=== PATIENT | female | born 1990 | race Caucasian/White ===

== ENCOUNTER → 2016-06-27 | Outpatient (CLI) | payer BC ==
[~2016-06-27] MED LIST: AMOX-351 PO; NORG1TAB12
--- NOTE | 2016-06-27 16:51 | DI ---
Indication: ITS.REASON: R22.1 LOCALIZED SWELLING, MASS, AND LUMP, NECK PROCEDURE: US SOFT TISSUE NECK: Encounter: Initial Comparison: None Technique: Grayscale and color Doppler sonographic imaging of the neck was performed. Findings: In the right neck area of palpable abnormality there is an oval hypoechoic lesion measuring 1.9 x 0.7 x 1.1 cm in size that could represent a lymph node although I do not see a definite fatty hilum. In the left neck there is a small normal-appearing 2 to 3 mm short axis lymph node with a normal-appearing fatty hilum. Impression: Abnormality in the right neck that could represent an abnormal lymph node or mass. Recommend contrast enhanced neck CT for further evaluation. .
== END ==
LOC: IMA 10:21
PROVIDERS: ATTEND Family Medicine
DX: R93.8 Abnormal findings on diagnostic imaging of other specified body structures (principal)

== ENCOUNTER → 2016-07-04 | Outpatient (CLI) | payer BC ==
[~2016-07-04] MED LIST changes: +IOHEXOL 300 MG/ML 75ml INJECTION ONE; +NORMAL SALINE 100 ML ONE; +SALINE FLUSH 10ml SYRINGE ONE
--- NOTE | 2016-07-04 09:23 | DI ---
Indication: ITS.REASON: R22.1 Localized swelling, mass and lump, neck PROCEDURE: CT NECK W/CONTRAST: Encounter: Initial Comparison: Ultrasound dated June 27, 2016 Technique: Axial CT images were performed through the neck with intravenous contrast. Coronal and sagittal two-dimensional reformats Automated Exposure Control and Iterative Reconstruction dose reducing techniques were utilized. Contrast: Omnipaque 300 75 mL Findings: The lung apices are clear. Thyroid gland is a tiny subcentimeter low-attenuation focus on axial image #40. The palpable area of abnormality in the right neck represents an elongated lymph node adjacent to the submandibular gland in cervical level 2A. This node measures only 7 to 8 mm in short axis dimension and does not show pathologic enhancement. No pathologic adenopathy in the neck. No enhancing mass or fluid collection. Skull base is within normal limits. Great vessels are normal. Bony structures are within normal limits. No mucosal based masses. Impression: No acute abnormality. .
== END ==
LOC: IMA 08:32
PROVIDERS: ATTEND Family Medicine
DX: R22.1 Localized swelling, mass and lump, neck (principal)
CPT/HCPCS: 70491; J7050; Q9967